=== PATIENT | male | born 1945 | race American Indian/Alaskan Native ===

== ENCOUNTER 2018-09-17 13:26 | Outpatient (CLI) | payer MEDICARE | END 2018-09-17 13:27 | disposition home or self-care (01) | LOC: CARDIO 13:26 | DX: Z45.010 Encounter for checking and testing of cardiac pacemaker pulse generator [battery] (principal) ==

== ENCOUNTER 2019-02-02 06:09 | Day surgery (SDC) | payer MEDICARE ==
[2019-01-28 15:01] VITALS: BMI 24.0
[2019-02-02] MEDS ORDERED: Propofol 10 mg/ml Inj (20 ML) ONE (07:40)
[2019-02-02] MEDS ORDERED: Etomidate 20 mg/10ml Inj IV ONE (07:41)
[2019-02-02] MEDS ORDERED: Sodium Chloride 0.9% 1,000 ML IV SCH (08:30)
[2019-02-02 09:37] VITALS: BP 127/74; PULSE 61; O2SAT 97
[2019-02-02 10:13] VITALS: RESP 16; TEMP 98
== END 2019-02-02 10:40 | disposition home or self-care (01) ==
LOC: ENDO 06:09
PROVIDERS: ATTEND Internal Medicine Gastroenterology
DX: D50.9 Iron deficiency anemia, unspecified (principal); D12.2 Benign neoplasm of ascending colon; K62.1 Rectal polyp; K64.8 Other hemorrhoids; E11.9 Type 2 diabetes mellitus without complications; I10 Essential (primary) hypertension; I49.9 Cardiac arrhythmia, unspecified; Z95.810 Presence of automatic (implantable) cardiac defibrillator; Z79.82 Long term (current) use of aspirin
CPT/HCPCS: 45380; 82948; 88305; 88342; J2001; J2704; J7030